=== PATIENT | female | born 1955 | race Caucasian/White ===

== ENCOUNTER 2017-03-14 12:40 | Outpatient (CLI) | payer BC ==
--- NOTE | 2017-03-14 13:20 | MMO ---
BILATERAL SCREENING MAMMOGRAM: DATE: 03/14/2017 HISTORY: A 61-year-old female for screening mammography. COMPARISON: 11/17/2014, 11/24/2013. FINDINGS: Bilateral MLO and CC views of the breasts show scattered fibroglandular breast tissue. Benign-appea ring calcifications are seen in the both breasts. There is no evidence of suspicious mass, suspicio us cluster of microcalcifications, or area of architectural distortion. Interpretation of this mammogram was performed with the assistance of computer-aided detection. IMPRESSION: BIRADS 2: Benign Finding(s) Annual screening mammography is recommended. POS: [facility]
--- NOTE | 2017-03-14 14:46 | BD ---
BONE DENSITOMETRY USING DEXA: Date: 03/14/17 HISTORY: Postmenopausal screening for osteoporosis. FINDINGS: Right Hip: BMD (g/cm2) Neck 0.782 T-Score: -0.6 Z-Score: 0.8 Total 0.773 T-Score: -1.41 Z-Score: -0.3 Left Hip: Neck 0.750 T-Score: -0.9 Z-Score: 0.5 Total 0.769 T-Score: -1.4 Z-Score: -0.3 The 10 year fracture risk for a major osteoporotic fracture is 18% and for a hip fracture is 0.6%. IMPRESSION: Osteopenia. POS: [facility]
== END 2017-03-14 12:41 | disposition home or self-care (01) ==
LOC: MAMMO 12:40
PROVIDERS: ATTEND Internal Medicine
DX: Z12.31 Encounter for screening mammogram for malignant neoplasm of breast (principal); M85.80 Other specified disorders of bone density and structure, unspecified site
CPT/HCPCS: 77067; 77080; G0202

== ENCOUNTER 2018-03-27 14:54 | Outpatient (CLI) | payer BC | END 2018-03-27 14:55 | disposition home or self-care (01) | LOC: BICMAMMO 14:54 | PROVIDERS: ATTEND Internal Medicine | DX: Z12.31 Encounter for screening mammogram for malignant neoplasm of breast (principal); Z80.3 Family history of malignant neoplasm of breast | CPT/HCPCS: 77063; 77067 ==

== ENCOUNTER 2018-05-20 13:58 | Outpatient (CLI) | payer BC ==
--- NOTE | 2018-05-20 16:33 | ULT ---
THYROID ULTRASOUND: 05/20/18 HISTORY: Thyroid nodules. COMPARISON: None. TECHNIQUE: Sagittal and transverse imaging of the thyroid gland is performed. FINDINGS: Right thyroid lobe measures 5.3 x 2.2 x 1.8 cm. Left thyroid lobe measures 4.4 x 1.6 x 1.5 cm. Thyroi d isthmus measures 0.7 cm. In the lower pole of the right thyroid lobe is a complex nodule measuring 1.6 x 2.2 x 1.3 cm. In the mid to lower pole of the left thyroid lobe is a solid nodule measuring 0.7 x 0.6 x 0.7 cm. IMPRESSION: Nodule in the left and right thyroid as described above. Largest nodule has a TIRADS score of TR4. Gi stephanie the size of the lesion, ultrasound guided fine needle aspiration is recommended POS: [facility]
== END 2018-05-20 13:59 | disposition home or self-care (01) ==
LOC: BICULT 13:58
PROVIDERS: ATTEND Otolaryngology Plastic Surgery within the Head & Neck
DX: E04.2 Nontoxic multinodular goiter (principal)
CPT/HCPCS: 76536

== ENCOUNTER 2019-03-30 15:05 | Outpatient (CLI) | payer BC ==
--- NOTE | 2019-03-30 16:14 | MMO ---
Bilateral MAMMO Bilat Screen [facility]. CLINICAL HISTORY: Patient is 63 years old and is seen for screening. The patient has the following family history of breast cancer: maternal aunt. The patient has no personal history of cancer. The patient has a history of left Ultrasound Guided Core Biopsy in October, - benign - FIBROCYSTIC CHANGES and left Lumpectomy in October, - fat necrosis and stromal fibrosis and sclerosing adenosis. VIEWS: The views performed were: bilateral craniocaudal with tomosynthesis and bilateral mediolateral oblique with tomosynthesis. FILMS COMPARED: The present examination has been compared to prior imaging studies performed at [facility] on 03/27/2018, and at [facility] on 11/24/2013, 11/17/2014 and 03/14/2017. This study has been interpreted with the assistance of computer-aided detection. MAMMOGRAM FINDINGS: There are scattered fibroglandular densities. There are stable post operative changes seen in the left breast. There are no suspicious masses, calcifications or areas of architectural distortion. There are no suspicious masses, suspicious calcifications, or new areas of architectural distortion. IMPRESSION: THERE IS NO MAMMOGRAPHIC EVIDENCE OF MALIGNANCY. A ROUTINE FOLLOW-UP MAMMOGRAM IN 1 YEAR IS RECOMMENDED. THE RESULTS OF THIS EXAM WERE SENT TO THE PATIENT. ACR BI-RADS Category 2 - Benign finding MAMMOGRAPHY NOTE: 1. A negative mammogram report should not delay a biopsy if a dominant of clinically suspicious mass is present. 2. Approximately 10% to 15% of breast cancers are not detected by mammography. 3. Adenosis and dense breasts may obscure an underlying neoplasm. Reported by: MOLLY LUGO MD Electonically Signed: [id number]
== END 2019-03-30 15:06 | disposition home or self-care (01) ==
LOC: BICMAMMO 15:05
PROVIDERS: ATTEND Internal Medicine
DX: Z12.31 Encounter for screening mammogram for malignant neoplasm of breast (principal); Z80.3 Family history of malignant neoplasm of breast; Z98.890 Other specified postprocedural states
CPT/HCPCS: 77063; 77067

== ENCOUNTER 2020-03-27 09:30 | Outpatient (CLI) | payer BC ==
--- NOTE | 2020-03-27 10:31 | MMO ---
Bilateral MAMMO Bilat Screen [facility]. CLINICAL HISTORY: Patient is 64 years old and is seen for screening. The patient has the following family history of breast cancer: maternal aunt. The patient has no personal history of cancer. The patient has a history of left Excisional Biopsy in October, - benign - FIBROCYSTIC CHANGES and left Lumpectomy in October, - fat necrosis and stromal fibrosis and sclerosing adenosis. VIEWS: The views performed were: bilateral craniocaudal with tomosynthesis and bilateral mediolateral oblique with tomosynthesis. FILMS COMPARED: The present examination has been compared to prior imaging studies performed at [facility] on 03/27/2018 and 03/30/2019, and at [facility] on 11/17/2014 and 03/14/2017. This study has been interpreted with the assistance of computer-aided detection. MAMMOGRAM FINDINGS: There are scattered fibroglandular densities. Benign calcifications are noted bilaterally. There are stable left post-operative changes. There are no suspicious masses, suspicious calcifications, or new areas of architectural distortion. IMPRESSION: THERE IS NO MAMMOGRAPHIC EVIDENCE OF MALIGNANCY. A ROUTINE FOLLOW-UP MAMMOGRAM IN 1 YEAR IS RECOMMENDED. THE RESULTS OF THIS EXAM WERE SENT TO THE PATIENT. ACR BI-RADS Category 2 - Benign finding MAMMOGRAPHY NOTE: 1. A negative mammogram report should not delay a biopsy if a dominant of clinically suspicious mass is present. 2. Approximately 10% to 15% of breast cancers are not detected by mammography. 3. Adenosis and dense breasts may obscure an underlying neoplasm. Reported by: CHRISTOFER MUNOZ MD Electonically Signed: [id number]
== END 2020-03-27 09:31 | disposition home or self-care (01) ==
LOC: BICMAMMO 09:30
PROVIDERS: ATTEND Internal Medicine
DX: Z12.31 Encounter for screening mammogram for malignant neoplasm of breast (principal); Z91.89 Other specified personal risk factors, not elsewhere classified; Z80.3 Family history of malignant neoplasm of breast
CPT/HCPCS: 77063; 77067

== ENCOUNTER 2021-03-16 13:33 | Outpatient (CLI) | payer BC | END 2021-03-16 13:34 | disposition home or self-care (01) | LOC: BICULT 13:33 | PROVIDERS: ATTEND Internal Medicine | DX: E04.2 Nontoxic multinodular goiter (principal) | CPT/HCPCS: 76536 ==

== ENCOUNTER 2021-03-29 13:39 | Outpatient (CLI) | payer BC | END 2021-03-29 13:40 | disposition home or self-care (01) | LOC: BICMAMMO 13:39 | PROVIDERS: ATTEND Internal Medicine | DX: Z12.31 Encounter for screening mammogram for malignant neoplasm of breast (principal); Z91.89 Other specified personal risk factors, not elsewhere classified; Z98.890 Other specified postprocedural states; Z80.3 Family history of malignant neoplasm of breast | CPT/HCPCS: 77063; 77067 ==

== ENCOUNTER 2021-05-08 12:28 | Day surgery (SDC) | payer BC ==
[2021-05-07 14:21] VITALS: BMI 28.1
[~2021-05-08 12:28] MED LIST: FLU VACC QS2021-22(65YR UP)/PF 240 MCG/0.7 ML SYRINGE IM ONE
[2021-05-08] MEDS ORDERED: Sodium Bicarbonate 2.5 MEQ/5 ML VIAL ONE (12:37)
[2021-05-08] MEDS ORDERED: Lidocaine 1% PF 5 ML VIAL ONE (12:37)
[2021-05-08 13:20] VITALS: BP 136/71
== END 2021-05-08 14:00 | disposition home or self-care (01) ==
LOC: ULT 12:28
PROVIDERS: ATTEND Otolaryngology Plastic Surgery within the Head & Neck
PROC: 0G9H3ZX Drainage of Right Thyroid Gland Lobe, Percutaneous Approach, Diagnostic (ICD-10-PCS; principal; 2021-05-08)
DX: E04.2 Nontoxic multinodular goiter (principal); M15.9 Polyosteoarthritis, unspecified; E78.5 Hyperlipidemia, unspecified; I10 Essential (primary) hypertension; E11.9 Type 2 diabetes mellitus without complications; Z79.82 Long term (current) use of aspirin; Z79.84 Long term (current) use of oral hypoglycemic drugs; Z79.899 Other long term (current) drug therapy; Z88.8 Allergy status to other drugs, medicaments and biological substances
CPT/HCPCS: 10005; 88173; 88305; 90471; 90662; 90732; G0008; G0009

== ENCOUNTER 2021-05-23 14:26 | Outpatient (CLI) | payer BC | END 2021-05-23 14:27 | disposition home or self-care (01) | LOC: BICULT 14:26 | PROVIDERS: ATTEND Internal Medicine | DX: N18.31 Chronic kidney disease, stage 3a (principal) | CPT/HCPCS: 76770 ==

== ENCOUNTER 2021-09-27 13:09 | Outpatient (CLI) | payer BC | END 2021-09-27 13:10 | disposition home or self-care (01) | LOC: BICRAD 13:09 | PROVIDERS: ATTEND Internal Medicine Rheumatology | DX: M25.511 Pain in right shoulder (principal); M25.512 Pain in left shoulder; M54.2 Cervicalgia; M47.816 Spondylosis without myelopathy or radiculopathy, lumbar region | CPT/HCPCS: 72052 ==

== ENCOUNTER 2022-03-29 09:27 | Outpatient (CLI) | payer MEDICARE, BC | END 2022-03-29 09:28 | disposition home or self-care (01) | LOC: BICMAMMO 09:27 | PROVIDERS: ATTEND Internal Medicine | DX: Z12.31 Encounter for screening mammogram for malignant neoplasm of breast (principal); Z13.820 Encounter for screening for osteoporosis; M85.852 Other specified disorders of bone density and structure, left thigh; M85.851 Other specified disorders of bone density and structure, right thigh; Z80.3 Family history of malignant neoplasm of breast; Z91.89 Other specified personal risk factors, not elsewhere classified; Z98.890 Other specified postprocedural states | CPT/HCPCS: 77063; 77067; 77080 ==

== ENCOUNTER 2022-08-12 10:48 | Outpatient (CLI) | payer MEDICARE, BC | END 2022-08-12 10:49 | disposition home or self-care (01) | LOC: RAD 10:48 | PROVIDERS: ATTEND Nurse Practitioner Family | DX: M25.531 Pain in right wrist (principal) ==

== ENCOUNTER 2023-02-07 15:00 | Outpatient (CLI) | payer MEDICARE, BC | END 2023-02-07 15:01 | disposition home or self-care (01) | LOC: BICULT 15:00 | PROVIDERS: ATTEND Internal Medicine | DX: E04.2 Nontoxic multinodular goiter (principal) | CPT/HCPCS: 76536 ==

== ENCOUNTER 2023-04-16 12:40 | Outpatient (CLI) | payer MEDICARE, BC | END 2023-04-16 12:41 | disposition home or self-care (01) | LOC: BICMAMMO 12:40 | PROVIDERS: ATTEND Internal Medicine | DX: Z12.31 Encounter for screening mammogram for malignant neoplasm of breast (principal); Z80.3 Family history of malignant neoplasm of breast; Z91.89 Other specified personal risk factors, not elsewhere classified; Z98.890 Other specified postprocedural states | CPT/HCPCS: 77063; 77067 ==

== ENCOUNTER 2024-06-11 10:27 | Outpatient (CLI) | payer MEDICARE | END 2024-06-11 10:28 | disposition home or self-care (01) | LOC: BICMAMMO 10:27 | PROVIDERS: ATTEND Internal Medicine | DX: Z12.31 Encounter for screening mammogram for malignant neoplasm of breast (principal); Z78.0 Asymptomatic menopausal state; M85.89 Other specified disorders of bone density and structure, multiple sites | CPT/HCPCS: 77063; 77067; 77080 ==